=== PATIENT | male | born 1995 | race Caucasian/White ===

== ENCOUNTER 2016-07-15 22:14 | Emergency (ER) | payer OTHER ==
[2016-07-15 22:19] VITALS: RESP 18; TEMP 97.4
[2016-07-15 23:05] LABS: BASO % 0.5 % (0.0-2.0); EOS # 0.1 K/uL (0.0-0.7); EOS % 0.6 % (0.0-4.0); HEMATOCRIT 46.9 % (35.0-51.0); LYMPH # 2.6 K/uL (1.0-4.3); LYMPH % 29.8 % (20.0-40.0); MEAN CELL VOLUME 86.5 fl (80.0-94.0); MEAN CORPUSCULAR HEMOGLOBIN 29.1 pg (27.0-31.0); MEAN CORPUSCULAR HGB CONC 33.6 g/dL (33.0-37.0); MEAN PLATELET VOLUME 7.9 fl (7.2-11.7); MONO # 0.6 K/uL (0.0-0.8); MONO % 6.9 % (0.0-10.0); NEUT # 5.5 K/uL (1.8-7.0); NEUT % 62.2 % (50.0-75.0); NRBC % 0.1 % (0.0-0.0); RED CELL DISTRIBUTION WIDTH 13.2 % (11.5-14.5); WHITE BLOOD COUNT 8.9 K/uL (4.8-10.8)
[2016-07-15 23:16] LABS: BLOOD UREA NITROGEN 14 mg/dl (9-20); CALCIUM 10.5 mg/dL (8.4-10.2); CARBON DIOXIDE 24 mmol/L (22-30); CHLORIDE 104 mmol/L (98-107); GFR AFRICAN-AMERICAN > 60; GLUCOSE,RANDOM 94 mg/dL (75-110); POTASSIUM 4.1 MMOL/L (3.6-5.0); SODIUM 144 mmol/l (132-148)
[2016-07-15 23:25] LABS: PARTIAL THROMBOPLASTIN TIME 26.3 SECONDS (23.3-32.5)
[2016-07-16 00:16] LABS: RBC URINE 1 /hpf (0-3); URINE BILIRUBIN NEGATIVE (NEGATIVE); URINE BLOOD NEGATIVE (NEGATIVE); URINE COLOR YELLOW (YELLOW); URINE GLUCOSE (UA) NEG (Normal); URINE KETONE 20 mg/dL (NEGATIVE); URINE LEUKOCYTE ESTERASE NEG Leu/uL (Negative); URINE PROTEIN NEGATIVE (NEGATIVE); URINE UROBILINOGEN 0.2-1.0 mg/dL (0.2-1.0); WBC URINE < 1 /hpf (0-5)
[2016-07-16 01:20] VITALS: BP 129/84; PULSE 71; O2SAT 98
--- NOTE | 2016-07-16 01:23 | ED PDOC ---
HPI: General Adult Time Seen by Provider: 07/15/16 22:21 Chief Complaint (Nursing): Trauma Chief Complaint (Provider): neck and back pain History Per: Patient Additional Complaint(s): pt states he slipped on wet floor [employer], was ago to catch himself, but in doing so twisted back and neck. now c/o severe back and neck pain w/ associated paresthesias to 5th fingers B/L. no head injury, LOC, cp, sob, abd pain, n/v/d , urinary c/o, incontinence, saddle paresthesias, numbness, weakness distally. Past Medical History Reviewed: Historical Data, Nursing Documentation, Vital Signs Vital Signs: Last Vital Signs Temp 97.4 F L 07/15/16 22:17 Pulse 71 07/16/16 01:19 Resp 18 07/16/16 01:19 BP 129/84 07/16/16 01:19 Pulse Ox 98 07/16/16 01:19 - Medical History PMH: No Chronic Diseases - Surgical History Surgical History: No Surg Hx - Family History Family History: States: No Known Family Hx - Social History Current smoker - smoking cessation education provided: No Alcohol: None Drugs: Denies - Home Medications Home Medications: Ambulatory Orders Medication Instructions Recorded Cyclobenzaprine [Cyclobenzaprine 10 mg PO Q8 #15 tab 07/16/16 HCl] Naproxen [Naprosyn] 500 mg PO BID #20 tablet 07/16/16 oxyCODONE/Acetaminophen [Percocet 1 ea PO Q6 #6 tab 07/16/16 5/325 mg Tab] - Allergies Allergies/Adverse Reactions: Allergies Allergy/AdvReac Type Severity Reaction Status Date / Time azithromycin [From Zithromax] Allergy RASH Verified 07/15/16 22:17 Review of Systems ROS Statement: Except As Marked, All Systems Reviewed And Found Negative Musculoskeletal: Positive for: Neck Pain, Back Pain Physical Exam - Reviewed Nursing Documentation Reviewed: Yes Vital Signs Reviewed: Yes - Physical Exam Appears: Positive for: In Acute Distress (painful) Head Exam: Positive for: ATRAUMATIC, NORMAL INSPECTION, NORMOCEPHALIC Skin: Positive for: Normal Color, Warm, DRY Neck: Negative for: Normal (C collar maintained) Cardiovascular/Chest: Positive for: Regular Rate, Rhythm Respiratory: Positive for: CNT, Normal Breath Sounds Gastrointestinal/Abdominal: Positive for: Normal Exam, Bowel Sounds, Soft, Tenderness Extremity: Positive for: Other (psychic reader 4/5 pincer 5/5 adduction 5/5 B/L UE. foot plantar flexion 3/5 w/ fasciculations. dorsiflexion 3/5. leg raise 3/5 B/ l LE) Neurologic/Psych: Positive for: Alert, Oriented, Other (sensation intact distally) - Laboratory Results Result Diagrams: 07/15/16 22:57 07/15/16 22:57 - ECG O2 Sat by Pulse Oximetry: 98 Disposition - Clinical Impression Clinical Impression: Cervical strain, Low back strain - Disposition Referrals: FAMILY PROVIDER,NO [Primary Care Provider] - [facility] [place] [Outside] Condition: GOOD Prescriptions: Cyclobenzaprine [Cyclobenzaprine HCl] 10 mg PO Q8 #15 tab Naproxen [Naprosyn] 500 mg PO BID #20 tablet oxyCODONE/Acetaminophen [Percocet 5/325 mg Tab] 1 ea PO Q6 #6 tab Instructions: Cervical Strain (DC), Acute Low Back Pain (ED) Forms: [facility] ED School/Work Excuse
--- NOTE | 2016-07-16 09:37 | CT ---
PROCEDURE: CT Lumbar Spine without contrast HISTORY: injury, B/L LE weakness COMPARISON: None. TECHNIQUE: Axial computed tomography images were obtained of the lumbar spine without the use of intravenous contrast. Coronal and sagittal reformatted images were created and reviewed. Radiation dose: Total exam DLP = 514.38 mGy-cm. This CT exam was performed using one or more of the following dose reduction techniques: Automated exposure control, adjustment of the mA and/or kV according to patient size, and/or use of iterative reconstruction technique. FINDINGS: VERTEBRAE: Unremarkable. No fracture. Normal alignment. DISCS/SPINAL CANAL/NEURAL FORAMINA: L1-2: Disc space height maintained. No evidence of disc herniation or significant disc bulge. L2-3: Disc space height maintained. No disc herniation or significant disc bulge. L3-4: Disc space height maintained. No disc herniation or significant disc bulge. L4-5: . Minor posterior disc space narrowing. There is also there minimal/shallow broad-based bulge of the posterior annulus. Central canal and exit foramina are adequate. L5-S1: Move there is mild posterior disc space narrowing. Minimal central and bilateral disc bulge however central canal and exit foramina are adequate. No significant disc herniation or significant disc bulge. . PARASPINAL SOFT TISSUES: Paraspinal soft tissues unremarkable OTHER FINDINGS: None. IMPRESSION: No acute compression fractures no retropulsed fragments. Central canal and exit foramina appear adequate
--- NOTE | 2016-07-16 11:17 | CT ---
PROCEDURE: CT Cervical Spine without contrast HISTORY: <B/L UE weakness, injury> COMPARISON: None available. TECHNIQUE: Axial computed tomography images were obtained of the cervical spine without the use of intravenous contrast. Coronal and sagittal reformatted images were created and reviewed. Radiation dose: Total exam DLP = 569.22 mGy-cm. This CT exam was performed using one or more of the following dose reduction techniques: Automated exposure control, adjustment of the mA and/or kV according to patient size, and/or use of iterative reconstruction technique. FINDINGS: VERTEBRAE: No fracture. Normal alignment. No destructive bony lesion. Note is made of overlying cervical collar DISCS/SPINAL CANAL/NEURAL FORAMINA: No significant central canal or neural foraminal stenosis. Discs heights are grossly preserved. PARASPINAL SOFT TISSUES: Unremarkable. OTHER FINDINGS: Minimal biapical pleural thickening IMPRESSION: No acute compression fractures no retropulsed fragments. If symptoms persist, occult fracture ligamentous or cord injury suspected clinically, recommend followup MRI.
== END 2016-07-16 01:51 | disposition home or self-care (01) ==
LOC: H.ER 22:14
DX: S16.1XXA Strain of muscle, fascia and tendon at neck level, initial encounter (principal); S39.012A Strain of muscle, fascia and tendon of lower back, initial encounter; W19.XXXA Unspecified fall, initial encounter; Y92.89 Other specified places as the place of occurrence of the external cause